=== PATIENT | male | born 1945 | race Caucasian/White ===

== ENCOUNTER → 2020-07-29 | Outpatient (CLI) | payer MEDICARE ==
[~2020-07-29] MED LIST: NORCO 5-325 TA1 EACH PO
[2020-07-29 13:02] LABS: HEMOGLOBIN 17.5 gm/dl (14.0-17.5); RED BLOOD COUNT 5.77 M/UL (4.20-5.50); WHITE BLOOD COUNT 8.1 K/UL (4.5-11.0)
[2020-07-29 13:30] LABS: BUN/CREATININE RATIO 12 (0-10)
== END ==
LOC: LAB 12:17
PROVIDERS: Internal Medicine
DX: I10 Essential (primary) hypertension (principal); E11.65 Type 2 diabetes mellitus with hyperglycemia; E78.5 Hyperlipidemia, unspecified; E87.6 Hypokalemia
CPT/HCPCS: 36415; 80048; 80061; 80076; 83036; 84443; 85025

== ENCOUNTER → 2020-11-11 | Outpatient (CLI) | payer MEDICARE ==
[2020-11-11 10:29] LABS: HEMOGLOBIN 17.2 gm/dl (14.0-17.5); RED BLOOD COUNT 5.57 M/UL (4.20-5.50); WHITE BLOOD COUNT 6.6 K/UL (4.5-11.0)
[2020-11-11 10:50] LABS: BUN/CREATININE RATIO 17 (0-10)
== END ==
LOC: LAB 09:13
PROVIDERS: Internal Medicine
DX: E11.65 Type 2 diabetes mellitus with hyperglycemia (principal)
CPT/HCPCS: 36415; 80048; 80061; 80076; 83036; 84443; 85025

== ENCOUNTER 2021-06-11 13:22 | Inpatient (IN) | payer MEDICARE ==
[~2021-06-11] VITALS: Ht 170.2 cm; Wt 105.7 kg
[2021-06-11 14:08] LABS: HEMOGLOBIN 16.6 gm/dl (14.0-17.5); RED BLOOD COUNT 5.36 M/UL (4.20-5.50); WHITE BLOOD COUNT 4.7 K/UL (4.5-11.0)
[2021-06-11 14:50] LABS: BUN/CREATININE RATIO 12 (0-10)
[2021-06-11] MEDS ORDERED: GABAPENTIN300 MG PO (16:51)
[2021-06-11] MEDS ORDERED: METFORMIN HCL500 M2 PO (16:53)
[2021-06-11] MEDS ORDERED: LISINOPRIL20 MG PO (16:54)
[2021-06-11] MEDS ORDERED: PRAVASTATIN SOD40 MG PO (16:54)
[2021-06-11] MEDS ORDERED: SERTRALINE HCL50 MG PO (16:54)
[2021-06-11] MEDS ORDERED: QUETIAPINE FUMA25 MG PO (16:55)
[2021-06-11] MEDS ORDERED: TAMSULOSIN HCL0.4 MG PO (16:55)
[2021-06-11] MEDS ORDERED: OMEPRAZOLE40 MG PO (16:55)
[2021-06-11] MEDS ORDERED: ASPIRIN EC81 MG PO (16:56)
[2021-06-11] MEDS ORDERED: POTASSIUM CHLO20 ME1 PO (16:56)
[2021-06-11] MEDS ORDERED: AVODART0.5 MG PO (16:56)
[2021-06-11] MEDS ORDERED: DRISDOL1250 MCG PO (16:57)
[2021-06-12 06:54] LABS: HEMOGLOBIN 14.9 gm/dl (14.0-17.5); RED BLOOD COUNT 4.95 M/UL (4.20-5.50)
[2021-06-12 06:55] LABS: WHITE BLOOD COUNT 2.7 K/UL (4.5-11.0)
[2021-06-12 07:43] LABS: BUN/CREATININE RATIO 17 (0-10)
--- NOTE | 2021-06-12 23:47 | NUR ---
CALL PLACED TO MD NEW PATIENT ESCORT , R/T POSSIBLE AFIB/ FLUTTER . NEW ORDER RECEIVED FOR EKG . CURRENT VS STABLE BP 125/57 HR 60'S
[2021-06-13 06:38] LABS: RED BLOOD COUNT 4.71 M/UL (4.20-5.50)
[2021-06-13 06:39] LABS: WHITE BLOOD COUNT 4.5 K/UL (4.5-11.0)
[2021-06-13 07:15] LABS: BUN/CREATININE RATIO 16 (0-10)
[2021-06-14 03:42] LABS: HEMOGLOBIN 13.6 gm/dl (14.0-17.5); RED BLOOD COUNT 4.51 M/UL (4.20-5.50); WHITE BLOOD COUNT 3.4 K/UL (4.5-11.0)
[2021-06-14 04:04] LABS: BUN/CREATININE RATIO 21 (0-10)
[2021-06-16 04:34] LABS: BUN/CREATININE RATIO 32 (0-10)
[2021-06-16] MEDS ORDERED: DECADRON6 MG PO (10:00)
[2021-06-16] MEDS ORDERED: BENZONATATE100 MG PO (10:00)
[2021-06-16] MEDS ORDERED: ELIQUIS 5 MG TAB5 MG PO (10:00)
[2021-06-16] MEDS ORDERED: CARVEDILOL3.125 MG PO (10:00)
== END 2021-06-16 15:12 | disposition home or self-care (01) | DRG 177 ==
LOC: ER1 13:22 → MED SURG 4 16:04 → PROG CARE 16:04 → CDU 16:04 → MED SURG 4 18:12 → PROG CARE 06-13 10:21
PROVIDERS: Emergency Medicine; Internal Medicine; ADMIT Internal Medicine
PROC: 8E0ZXY6 Isolation (ICD-10-PCS; principal; 2021-06-11)
PROC: 3E02340 Introduction of Influenza Vaccine into Muscle, Percutaneous Approach (ICD-10-PCS; 2021-06-11)
PROC: 3E0333Z Introduction of Anti-inflammatory into Peripheral Vein, Percutaneous Approach (ICD-10-PCS; 2021-06-11)
PROC: XW033E5 Introduction of Remdesivir Anti-infective into Peripheral Vein, Percutaneous Approach, New Technology Group 5 (ICD-10-PCS; 2021-06-11)
PROC: B24BZZZ Ultrasonography of Heart with Aorta (ICD-10-PCS; 2021-06-12)
DX: U07.1 COVID-19 (principal); J12.82 Pneumonia due to coronavirus disease 2019; J96.01 Acute respiratory failure with hypoxia; E87.2 Acidosis; E11.9 Type 2 diabetes mellitus without complications; F43.10 Post-traumatic stress disorder, unspecified; E66.9 Obesity, unspecified; I45.10 Unspecified right bundle-branch block; I48.91 Unspecified atrial fibrillation; I10 Essential (primary) hypertension; G47.33 Obstructive sleep apnea (adult) (pediatric); F32.A Depression, unspecified; E78.5 Hyperlipidemia, unspecified; E78.00 Pure hypercholesterolemia, unspecified; K21.9 Gastro-esophageal reflux disease without esophagitis; N40.0 Benign prostatic hyperplasia without lower urinary tract symptoms; Z98.42 Cataract extraction status, left eye; Z98.41 Cataract extraction status, right eye; Z87.891 Personal history of nicotine dependence; Z23 Encounter for immunization; Z79.01 Long term (current) use of anticoagulants; Z79.82 Long term (current) use of aspirin; Z79.4 Long term (current) use of insulin; Z99.81 Dependence on supplemental oxygen; Z68.36 Body mass index [BMI] 36.0-36.9, adult
CPT/HCPCS: ECHO; 36415; 36600; 71045; 80048; 80053; 81001; 82550; 82553; 82728; 82803; 82962; 83036; 83605; 83615; 83874; 83880; 84484; 85025; 85027; 85379; 86140; 87040; 87086; 90686; 93005; 93306; 94640; 94664; 94760; 96374; 96375; 99285; G0008; J1100; J1650; J1940; J2405; J7030; U0002